=== PATIENT | male | born 1955 | race African-American/Black ===

== ENCOUNTER 2016-07-15 13:41 | Inpatient (IN) | payer OTHER ==
[~2016-07-15] VITALS: Ht 175.3 cm; Wt 85.7 kg
[2016-07-15] MEDS ORDERED: SPIR25TA PO (14:50)
[2016-07-15] MEDS ORDERED: OXGN (14:50)
[2016-07-15] MEDS ORDERED: METF-384 PO (14:50)
[2016-07-15] MEDS ORDERED: CARV6.252 PO (14:50)
[2016-07-15] MEDS ORDERED: FRS/40 PO (14:50)
[2016-07-15] MEDS ORDERED: GLIM2TAB2 PO (14:50)
[2016-07-15] MEDS ORDERED: LISI-729 PO (14:50)
[2016-07-15] MEDS ORDERED: ASPI81TA28 PO (14:50)
[2016-07-15] MEDS ORDERED: INSHRIE SC (14:50)
[2016-07-15] MEDS ORDERED: CGN1 PO (14:50)
[2016-07-15] MEDS ORDERED: POTA20TA16 PO (14:50)
[2016-07-15] MEDS ORDERED: ABL/5 PO (14:50)
--- NOTE | 2016-07-15 14:58 | DIAGNOSTIC IMAGING REPORT ---
CHEST ONE VIEW PORTABLE CLINICAL HISTORY: Chest Pain dyspnea COMPARISON STUDY: No previous studies for comparison. FINDINGS: Heart is enlarged. There is a left pleural effusion. There is atelectatic and/or effusion-type change right base. Pulmonary vasculature is prominent. IMPRESSION: Congestive heart failure and/or pulmonary edema. Bilateral pleural effusions. Electronically signed by: Ld Gramajo M.D. 07/15/2016 2:57 PM Dictated Date/Time: 07/15/2016 2:56 PM
--- NOTE | 2016-07-15 15:13 | EMERGENCY ROOM VISIT NOTE ---
History Report prepared by Iggy: Adam Freeman Under the Supervision of: Dr. Sourav Lind M.D. First contact with patient: 14:39 Chief Complaint: RESPIRATORY PROBLEMS Stated Complaint: REFUSING TREATMENT History of Present Illness The patient is a 61 year old male who presents to the Emergency Room with complaints of persistent shortness of breath for the past 2-3 days. Nursing notes indicate that the patient's oxygen saturation dropped to 88% on RA. He has also had a cough. The patient also notes leg swelling for which he takes Lasix. The patient denies any pain. The patient notes that he only urinated twice today. The patient has a history of CHF, which he currently denies. He also has a history of shingles. The patient came to the ED from [facility], where he was in the Mental Health Unit. Source of History: patient, nursing staff Onset: 2-3 days Position: other (respiratory) Quality: other (short of breath) Timing: other (persistent) Associated Symptoms: + cough, No chest pain Review of Systems See HPI for pertinent positives & negatives. A total of 10 systems reviewed and were otherwise negative. Past Medical & Surgical Medical Problems: (1) CHF (congestive heart failure) Family History Patient reports no known family medical history. Social History Smoking Status: Former Smoker Housing Status: other ([facility]) Occupation Status: other (incarcerated) Current/Historical Medications Scheduled Aripiprazole (Abilify), 5 MG PO DAILY Aspirin (Aspirin Ec), 81 MG PO DAILY Benztropine Mesylate (Cogentin), 0.5 MG PO HS Carvedilol (Coreg), 6.25 MG PO BID Furosemide (Lasix), 40 MG PO BID Glimepiride (Glimepiride), 2 MG PO DAILY Insulin Human Regular (Humulin R), 2-12 UNITS SC UD Lisinopril (Zestril), 25 MG PO DAILY Metformin Hcl (Glucophage), 1,000 MG PO BID Oxygen (Oxygen), 2 LITERS NA PRN Potassium Ext Rel (Klor-Con), 20 MEQ PO DAILY Spironolactone (Aldactone), 25 MG PO DAILY Allergies Coded Allergies: No Known Allergies (Unverified , 07/15/16) Physical Exam Vital Signs Date Time Temp Pulse Resp B/P Pulse Ox O2 Delivery O2 Flow Rate FiO2 07/15/16 18:30 36.6 88 16 140/90 90 Room Air 07/15/16 18:09 76 16 141/90 92 07/15/16 16:11 88 21 137/88 94 Room Air 07/15/16 16:00 91 Room Air 07/15/16 14:41 88 24 134/8 91 Room Air 07/15/16 14:13 88 Room Air 07/15/16 14:10 88 07/15/16 14:05 36.7 92 20 142/84 88 Room Air Physical Exam GENERAL: Patient is chronically unwell appearing and in no acute distress. HEENT: No acute trauma, normocephalic atraumatic, mucous membranes moist, no nasal congestion, no scleral icterus. NECK: No stridor, no adenopathy, no meningismus, trachea is midline. LUNGS: No dyspnea. Decreased breath sounds bilaterally with crackles at apex. HEART: Regular rate and rhythm. No murmurs, rubs, gallops appreciated. ABDOMEN: Soft, nontender, bowel sounds positive, no masses appreciated, no peritonitis. Pitting edema. BACK: No midline tenderness, no CVA tenderness. Pitting edema. Healing shingles along the right flank. EXTREMITIES: Normal motion all extremities, no cyanosis. Pitting edema of the bilateral lower legs. NEUROLOGIC: Alert and oriented, no acute motor or sensory deficits, no focal weakness, cranial nerves grossly intact. SKIN: No rash, no jaundice, no diaphoresis. Medical Decision & Procedures ER Provider Diagnostic Interpretation: X ray results are stated below per my interpretation and the radiologist's interpretation. CHEST ONE VIEW PORTABLE CLINICAL HISTORY: Chest Pain dyspnea COMPARISON STUDY: No previous studies for comparison. FINDINGS: Heart is enlarged. There is a left pleural effusion. There is atelectatic and/or effusion-type change right base. Pulmonary vasculature is prominent. IMPRESSION: Congestive heart failure and/or pulmonary edema. Bilateral pleural effusions. Electronically signed by: Ld Gramajo M.D. 07/15/2016 2:57 PM Dictated Date/Time: 07/15/2016 2:56 PM Laboratory Results 07/15/16 15:01 Red Blood Count 4.93, Mean Corpuscular Volume 83.6, Mean Corpuscular Hemoglobin 27.0, Mean Corpuscular Hemoglobin Concent 32.3, Mean Platelet Volume 9.6, Neutrophils (%) (Auto) 77.9, Lymphocytes (%) (Auto) 13.2, Monocytes (%) (Auto) 6.9, Eosinophils (%) (Auto) 1.5, Basophils (%) (Auto) 0.1, Neutrophils # (Auto) 6.05, Lymphocytes # (Auto) 1.03, Monocytes # (Auto) 0.54, Eosinophils # (Auto) 0.12, Basophils # (Auto) 0.01 07/15/16 15:01 Test 07/15/16 15:01 07/15/16 15:23 White Blood Count 7.78 K/uL (4.8-10.8) Red Blood Count 4.93 M/uL (4.7-6.1) Hemoglobin 13.3 g/dL (14.0-18.0) Hematocrit 41.2 % (42-52) Mean Corpuscular Volume 83.6 fL (80-100) Mean Corpuscular Hemoglobin 27.0 pg (25-34) Mean Corpuscular Hemoglobin Concent 32.3 g/dl (32-36) Platelet Count 265 K/uL (130-400) Mean Platelet Volume 9.6 fL (7.4-10.4) Neutrophils (%) (Auto) 77.9 % Lymphocytes (%) (Auto) 13.2 % Monocytes (%) (Auto) 6.9 % Eosinophils (%) (Auto) 1.5 % Basophils (%) (Auto) 0.1 % Neutrophils # (Auto) 6.05 K/uL (1.4-6.5) Lymphocytes # (Auto) 1.03 K/uL (1.2-3.4) Monocytes # (Auto) 0.54 K/uL (0.11-0.59) Eosinophils # (Auto) 0.12 K/uL (0-0.5) Basophils # (Auto) 0.01 K/uL (0-0.2) RDW Standard Deviation 62.0 fL (36.4-46.3) RDW Coefficient of Variation 20.4 % (11.5-14.5) Immature Granulocyte % (Auto) 0.4 % Immature Granulocyte # (Auto) 0.03 K/uL (0.00-0.02) Polychromasia 1+ Anisocytosis PRESENT Prothrombin Time 14.0 SECONDS (9.0-12.0) Prothromb Time International Ratio 1.3 (0.9-1.1) Activated Partial Thromboplast Time 28.3 SECONDS (21.0-31.0) Partial Thromboplastin Ratio 1.1 Anion Gap 7.0 mmol/L (3-11) Est Creatinine Clear Calc Drug Dose 103.5 ml/min Estimated GFR () 110.4 Estimated GFR (Non- 95.3 BUN/Creatinine Ratio 32.6 (10-20) Calcium Level 8.3 mg/dl (8.5-10.1) Total Bilirubin 0.8 mg/dl (0.2-1) Direct Bilirubin 0.5 mg/dl (0-0.2) Aspartate Amino Transf (AST/SGOT) 38 U/L (15-37) Alanine Aminotransferase (ALT/SGPT) 114 U/L (12-78) Alkaline Phosphatase 106 U/L (45-117) Total Creatine Kinase 71 U/L (39-308) Creatine Kinase MB 1.8 ng/ml (0.5-3.6) Creatine Kinase MB Ratio 2.5 (0-3.0) Troponin I 0.021 ng/ml (0-0.045) Pro-B-Type Natriuretic Peptide 6847 pg/ml (0-900) Total Protein 6.8 gm/dl (6.4-8.2) Albumin 2.6 gm/dl (3.4-5.0) Chemistry Specimen Hemolysis Arterial Blood pH 7.48 (7.35-7.45) Arterial Blood Partial Pressure CO2 35 mmHg (35-46) Arterial Blood Partial Pressure O2 55 mm/Hg (80-95) Arterial Blood HCO3 26 mmol/L (19-24) Arterial Blood Oxygen Saturation 87.4 % (90-95) Arterial Blood Base Excess 2.6 mEq/L (-9-1.8) Arterial Blood Gas Delivery ROOM AIR Taiwo Test POS (POS) Laboratory results as reviewed by me. Medications Administered Medications (Trade) Dose Ordered Sig/Piyush Route Start Time Stop Time Status Last Admin Dose Admin Furosemide (Lasix Inj) 40 mg NOW STAT IV 07/15/16 15:55 07/15/16 15:56 DC 07/15/16 16:10 40 MG ECG Indication: SOB/dyspnea Rate (beats per minute): 91 Rhythm: normal sinus Findings: no acute ischemic change, no ectopy, other (prolonged QTC 494, poor baseline) ED Course 1508: The patient was evaluated in room A5. A complete history and physical exam was performed. 1555: Lasix 40 mg IV. 151: Medicine paged. 1610: Spoke with Dr. Parker, [facility]. The patient will be evaluated. Medical Decision Differential: Infectious, Reactive Airway Disease, Pneumonia, Pneumothorax, COPD , CHF, ACS, Pulmonary Embolism, MSK, GI, Dissection, amongst other etiologies entertained. 61 yr old male arrives for acute worsening of shortness of breath, leg swelling and weakness. He is clearly fluid overloaded which is confirmed by CXR. BNP also elevated. He is hypoxic with walking and trending low just in bed. He also appears to have bilateral pleural effusions. No evidence of infection at this time though may need further work-up. He is stable and in no distress otherwise. IV lasix given here. Hospitalist down to evaluate and bring in. No evidence of ACS. Consults Time Called: 1514 Consulting Physician: Dr. Parker, [facility]. Returned Call: [phone]: Spoke with Dr. Parker, [facility]. The patient will be evaluated. Impression Primary Impression: Pulmonary edema Additional Impressions: Hypoxia Acute on chronic congestive heart failure Scribe Attestation The scribe's documentation has been prepared under my direction and personally reviewed by me in its entirety. I confirm that the note above accurately reflects all work, treatment, procedures, and medical decision making performed by me. Departure Information Dispostion Being Evaluated By Hospitalist Patient Instructions My [facility] Problem Qualifiers Primary Impression: Pulmonary edema Chronicity: acute Qualified Codes: J81.0 - Acute pulmonary edema Additional Impressions: Acute on chronic congestive heart failure Congestive heart failure type: unspecified congestive heart failure type Qualified Codes: I50.9 - Heart failure, unspecified
[2016-07-15 15:14] LABS: BASO % 0.1 %; BASO ABS # 0.01 K/uL (0-0.2); EOS % 1.5 %; HEMATOCRIT 41.2 % (42-52); IG% 0.4 %; LYMPH % 13.2 %; LYMPH ABS # 1.03 K/uL (1.2-3.4); MEAN CELL VOLUME 83.6 fL (80-100); MEAN CORPUSCULAR HGB CONC 32.3 g/dl (32-36); MEAN PLATELET VOLUME 9.6 fL (7.4-10.4); MONO % 6.9 %; NEUT % 77.9 %; PLATELET COUNT 265 K/uL (130-400); RED BLOOD COUNT 4.93 M/uL (4.7-6.1); WHITE BLOOD COUNT 7.78 K/uL (4.8-10.8)
[2016-07-15 15:34] LABS: ANISOCYTOSIS PRESENT; COMPLETE YES; POLYCHROMASIA 1+
[2016-07-15 15:40] LABS: ARTERIAL BLD GAS O2 SATURATION 87.4 % (90-95); ARTERIAL BLOOD GAS BASE EXCESS 2.6 mEq/L (-9-1.8); ARTERIAL BLOOD GAS HCO3 26 mmol/L (19-24); ARTERIAL BLOOD GAS PO2 55 mm/Hg (80-95); ARTERIAL BLOOD GAS pH 7.48 (7.35-7.45)
[2016-07-15 15:46] LABS: ALLEN TEST POS (POS); O2 ADMINISTRATION ROOM AIR
[2016-07-15 15:51] LABS: BUN/CREATININE RATIO 32.6 (10-20); CALCIUM 8.3 mg/dl (8.5-10.1); CKMB/CK RATIO 2.5 (0-3.0); CREATININE 0.81 mg/dl (0.60-1.40); POTASSIUM 4.3 mmol/L (3.5-5.1)
[2016-07-15] MEDS ORDERED: FUROSEMIDE 40 MG/4 ML VIAL IV STA (15:55)
[2016-07-15] MEDS ORDERED: OPTIRAY 320 IV PRN (16:30)
--- NOTE | 2016-07-15 17:04 | DIAGNOSTIC IMAGING REPORT ---
CT OF THE CHEST WITH IV CONTRAST CLINICAL HISTORY: Abnormal chest radiograph. COMPARISON STUDY: Chest radiograph July 15, 2016. TECHNIQUE: Following IV administration of 94 mL of Optiray-320, helical axial images of the chest were obtained. Images were viewed in the axial, sagittal and coronal planes. IV contrast was administered without complication. CT DOSE: 369.91 mGycm FINDINGS: This exam is compromised by respiratory motion. There is moderate cardiomegaly. Generalized anasarca is noted. There is no pericardial effusion. There are moderate bilateral pleural effusions. No pneumothorax is present. The central airways are patent. Lungs are suboptimally assessed due to respiratory motion. Mild groundglass opacities likely reflect pulmonary edema. There is bilateral fissural fluid. Bilateral lower lobe opacities likely reflect compressive atelectasis with lower lobe volume loss. No enlarged axillary, mediastinal or hilar lymph nodes are present. There is a healing fracture the left eighth rib. There is reflux of contrast into the IVC and hepatic veins. IMPRESSION: 1. Moderate bilateral pleural effusions with associated lower lobe airspace opacities and volume loss which favor compressive atelectasis. 2. Moderate cardiomegaly. 3. Mild groundglass opacities which favor pulmonary edema. 4. Generalized anasarca. 5. Study compromised by respiratory motion. Electronically signed by: Emiliano Clarke M.D. 07/15/2016 5:03 PM Dictated Date/Time: 07/15/2016 4:57 PM
[2016-07-15] MEDS ORDERED: ACETAMINOPHEN 325 MG TAB PO PRN (17:15)
[2016-07-15] MEDS ORDERED: ZOLPIDEM TARTRATE 5 MG TAB PO PRN (17:15)
[2016-07-15] MEDS ORDERED: NITROGLYCERIN 0.4 MG SL PER TAB CHARGE SL PRN (17:15)
[2016-07-15] MEDS ORDERED: DEXTROSE 50% 50 ML SYR IV PRN (17:30)
[2016-07-15] MEDS ORDERED: ONDANSETRON INJ 2 MG/ML 2 ML VIAL IV PRN (17:30)
[2016-07-15] MEDS ORDERED: GLUCOSE 40% GEL 15 GM TUBE PO PRN (17:30)
[2016-07-15] MEDS ORDERED: GLUCOSE 10 TABS/TUBE PO PRN (17:30)
[2016-07-15] MEDS ORDERED: GLUCAGON FOR INJ 1 MG VIAL SQ PRN (17:30)
[2016-07-15 17:31] LABS: INR 1.3 (0.9-1.1); PARTIAL THROMBOPLASTIN RATIO 1.1
[2016-07-15 18:30] VITALS: BP 140/90; PULSE 88; TEMP 36.6; O2SAT 90
[2016-07-15 19:16] VITALS: O2SAT 98; Ht 175.3 cm; Wt 85.7 kg
[2016-07-15 20:00] VITALS: O2SAT 98
[2016-07-15 20:30] VITALS: BP 142/84; PULSE 85; TEMP 37; O2SAT 94
[2016-07-15] MEDS: POTASSIUM CHLORIDE 20 MEQ TABCR PO SCH (20:39)
[2016-07-15] MEDS: FUROSEMIDE INJ 40 MG in SYRINGE 0 ML IV SCH (20:39)
[2016-07-15] MEDS: CARVEDILOL 6.25 MG TAB PO SCH (20:40)
[2016-07-15] MEDS: BENZTROPINE MESYLATE 1 MG TAB PO SCH (20:40)
[2016-07-15] MEDS: ENOXAPARIN 40 MG/0.4 ML SYR SC SCH (20:41)
[2016-07-15] MEDS: INSULIN ASPART 100 UNITS/ML 3 ML PEN SC SCH (20:44)
--- NOTE | 2016-07-15 22:03 | History and Physical ---
History & Physical Date & Time of Service: Jul 15, 2016 at 21:48 Chief Complaint: Acute On Chronic Congestive Heart Failure, Hypoxia Primary Care Physician: Rafita MUJICA History of Present Illness Source: patient The patient is a 61-year-old male resident of [facility] ,who presents to the emergency department with shortness of breath and leg swelling that initially began about 4 months ago, worsening over the past 2-3 days. He was found in the emergency department to have a pulse ox decreased to 88% on room air. He has been taking Lasix daily. The patient was in the mental health unit at [facility] for unknown treatment. Past Medical/Surgical History Medical Problems: (1) CHF (congestive heart failure) Status: Chronic Family History Patient reports no known family medical history. Social History Smoking Status: Former Smoker Smokeless Tobacco Use: No Alcohol Use: socially Drug Use: none Occupational Status: other (incarcerated) Multi-Drug Resistant Organisms History of MDRO: No Allergies Coded Allergies: No Known Allergies (Unverified , 07/15/16) Home Medications Scheduled Aripiprazole (Abilify), 5 MG PO DAILY Aspirin (Aspirin Ec), 81 MG PO DAILY Benztropine Mesylate (Cogentin), 0.5 MG PO HS Carvedilol (Coreg), 6.25 MG PO BID Furosemide (Lasix), 40 MG PO BID Glimepiride (Glimepiride), 2 MG PO DAILY Insulin Human Regular (Humulin R), 2-12 UNITS SC UD Lisinopril (Zestril), 25 MG PO DAILY Metformin Hcl (Glucophage), 1,000 MG PO BID Oxygen (Oxygen), 2 LITERS NA PRN Potassium Ext Rel (Klor-Con), 20 MEQ PO DAILY Spironolactone (Aldactone), 25 MG PO DAILY Review of Systems The patient denies vision change, hearing change, sore throat, fevers, chills, sweats, weight change, fatigue, nausea, vomiting, abdominal pain, pelvic pain, blood in urine or stool, dysuria, urinary frequency or urgency, lightheadedness , dizziness, headache, memory loss, rash, abnormal bruising or bleeding, imbalance, focal or generalized weakness, numbness or tingling in arms or legs, arthralgias or myalgias, back or neck pain, night sweats, or allergy symptoms. The review of systems is otherwise negative other than for that already noted above, and at least 10 systems have been reviewed. Physical Exam Vital Signs Date Time Temp Pulse Resp B/P Pulse Ox O2 Delivery O2 Flow Rate FiO2 07/15/16 19:16 98 Nasal Cannula 2.0 07/15/16 18:30 36.6 88 16 140/90 90 Room Air 07/15/16 18:09 76 16 141/90 92 07/15/16 16:11 88 21 137/88 94 Room Air 07/15/16 16:00 91 Room Air 07/15/16 14:41 88 24 134/8 91 Room Air 07/15/16 14:13 88 Room Air 07/15/16 14:10 88 07/15/16 14:05 36.7 92 20 142/84 88 Room Air The patient is awake, well-developed and adequately nourished, alert and oriented 3, makes some comments that are unintelligible, lying in bed and in no acute distress. HEENT--PERRL, EOMI, mucous membranes and oropharynx. Neck--supple, no JVD or bruits, thyroid normal, trachea midline, no adenopathy. Heart--normal S1 and S2, no extra beats, no murmurs, rubs or gallops. Lungs--decreased breath sounds throughout, and dull at the bases retirement up bilaterally, no respiratory distress, no accessory muscle use. Abdomen--normal bowel sounds and soft, nontender and nondistended, no hernias or masses, no organomegaly. Extremities--no cyanosis, clubbing. There is bilaterally 2+ pitting Edema. There are good distal pulses b/l. Dermatologic--normal skin turgor, normal color, warm and dry, no abnormal lymph nodes, no rash. Neurologic--cranial nerves II through XII grossly intact, motor and sensory examination normal. Rheumatologic--normal range of motion, nontender, muscles and joints. Psychiatric--suspect he is schizophrenic. Diagnostics Laboratory Results Results Past 24 Hours Test 07/15/16 15:01 07/15/16 15:23 07/15/16 20:43 Range/Units White Blood Count 7.78 4.8-10.8 K/uL Red Blood Count 4.93 4.7-6.1 M/uL Hemoglobin 13.3 14.0-18.0 g/dL Hematocrit 41.2 42-52 % Mean Corpuscular Volume 83.6 80-100 fL Mean Corpuscular Hemoglobin 27.0 25-34 pg Mean Corpuscular Hemoglobin Concent 32.3 32-36 g/dl Platelet Count 265 130-400 K/uL Mean Platelet Volume 9.6 7.4-10.4 fL Neutrophils (%) (Auto) 77.9 % Lymphocytes (%) (Auto) 13.2 % Monocytes (%) (Auto) 6.9 % Eosinophils (%) (Auto) 1.5 % Basophils (%) (Auto) 0.1 % Neutrophils # (Auto) 6.05 1.4-6.5 K/uL Lymphocytes # (Auto) 1.03 1.2-3.4 K/uL Monocytes # (Auto) 0.54 0.11-0.59 K/uL Eosinophils # (Auto) 0.12 0-0.5 K/uL Basophils # (Auto) 0.01 0-0.2 K/uL RDW Standard Deviation 62.0 36.4-46.3 fL RDW Coefficient of Variation 20.4 11.5-14.5 % Immature Granulocyte % (Auto) 0.4 % Immature Granulocyte # (Auto) 0.03 0.00-0.02 K/uL Polychromasia 1+ Anisocytosis PRESENT Prothrombin Time 14.0 9.0-12.0 SECONDS Prothromb Time International Ratio 1.3 0.9-1.1 Activated Partial Thromboplast Time 28.3 21.0-31.0 SECONDS Partial Thromboplastin Ratio 1.1 Sodium Level 137 136-145 mmol/L Potassium Level 4.3 3.5-5.1 mmol/L Chloride Level 101 98-107 mmol/L Carbon Dioxide Level 29 21-32 mmol/L Anion Gap 7.0 3-11 mmol/L Blood Urea Nitrogen 26 7-18 mg/dl Creatinine 0.81 0.60-1.40 mg/dl Est Creatinine Clear Calc Drug Dose 103.5 ml/min Estimated GFR () 110.4 Estimated GFR (Non- 95.3 BUN/Creatinine Ratio 32.6 10-20 Random Glucose 92 70-99 mg/dl Calcium Level 8.3 8.5-10.1 mg/dl Total Bilirubin 0.8 0.2-1 mg/dl Direct Bilirubin 0.5 0-0.2 mg/dl Aspartate Amino Transf (AST/SGOT) 38 15-37 U/L Alanine Aminotransferase (ALT/SGPT) 114 12-78 U/L Alkaline Phosphatase 106 45-117 U/L Total Creatine Kinase 71 39-308 U/L Creatine Kinase MB 1.8 0.5-3.6 ng/ml Creatine Kinase MB Ratio 2.5 0-3.0 Troponin I 0.021 0-0.045 ng/ml Pro-B-Type Natriuretic Peptide 6847 0-900 pg/ml Total Protein 6.8 6.4-8.2 gm/dl Albumin 2.6 3.4-5.0 gm/dl Chemistry Specimen Hemolysis Arterial Blood pH 7.48 7.35-7.45 Arterial Blood Partial Pressure CO2 35 35-46 mmHg Arterial Blood Partial Pressure O2 55 80-95 mm/Hg Arterial Blood HCO3 26 19-24 mmol/L Arterial Blood Oxygen Saturation 87.4 90-95 % Arterial Blood Base Excess 2.6 -9-1.8 mEq/L Arterial Blood Gas Delivery ROOM AIR Taiwo Test POS POS Bedside Glucose 111 70-99 mg/dl Diagnostic Radiology Patient Name: DORY EDWARDS [id number] Unit Number: [id number] Dictated: 07/15/[id number] Transcribed: 07/15/16 1456 MS Printed Date/Time: [~ rep prt dt]/[~ rep prt tm] [~ rep ct labl] - [~ rep ct ivnm] [facility] [place] [address] Dictated: 07/15/[id number] Transcribed: 07/15/16 1456 MS Printed Date/Time: [~ rep prt dt]/[~ rep prt tm] [~ rep ct labl] - [~ rep ct ivnm] DIAGNOSTIC IMAGING [~ rep ct add3]] CHEST ONE VIEW PORTABLE CLINICAL HISTORY: Chest Pain dyspnea COMPARISON STUDY: No previous studies for comparison. FINDINGS: Heart is enlarged. There is a left pleural effusion. There is atelectatic and/or effusion-type change right base. Pulmonary vasculature is prominent. IMPRESSION: Congestive heart failure and/or pulmonary edema. Bilateral pleural effusions. Electronically signed by: Ld Gramajo M.D. 07/15/2016 2:57 PM Dictated Date/Time: 07/15/2016 2:56 PM The status of this report is Signed. Draft = Not yet reviewed or approved by Radiologist. Signed = Reviewed and approved by Radiologist. <AttendingPhy></AttendingPhy> <FamilyPhy>Rafita MUJICA</FamilyPhy> <PrimaryPhy> Rafita MUJICA</PrimaryPhy> <UnitNumber>[id number]</UnitNumber> <VisitNumber> [id number]</VisitNumber> <PatientName>DORY EDWARDS [id number]</PatientName> < DateOfBirth>1955</DateOfBirth> <Location>C.GISSEL</Location> <ServiceDate></ServiceDate> <MNE>ESINDI</MNE> <OrderingPhy>Sourav Lind M.D.</ OrderingPhy> <OrderingPhyMNE>f rep ord dr santos</OrderingPhyMNE> <DictatingPhyMNE> f rep dict dr santos</DictatingPhyMNE> <CCListMNE>f rep ct mne</CCListMNE> < AdmittingPhyMNE>f pt admit dr santos</AdmittingPhyMNE> <AttendingPhyMNE>f pt attend dr santos</AttendingPhyMNE> <ConsultingPhyMNE>f pt consult dr santos</ConsultingPhyMNE> <FamilyPhyMNE>f pt fam dr santos</FamilyPhyMNE> <OtherPhyMNE>f pt other dr santos</OtherPhyMNE> < PrimaryPhyMNE>f pt prim care dr santos</PrimaryPhyMNE> <ReferringPhyMNE>f pt referring dr santos</ReferringPhyMNE> Patient Name: DORY EDWARDS [id number] Unit Number: [id number] Dictated: 07/15/[id number] Transcribed: 07/15/161656 JIMMY Printed Date/Time: [~ rep prt dt]/[~ rep prt tm] [~ rep ct labl] - [~ rep ct ivnm] [facility] [place] [place] [address] Dictated: 07/15/[id number] Transcribed: 07/15/161656 JA Printed Date/Time: [~ rep prt dt]/[~ rep prt tm] [~ rep ct labl] - [~ rep ct ivnm] CT OF THE CHEST WITH IV CONTRAST CLINICAL HISTORY: Abnormal chest radiograph. COMPARISON STUDY: Chest radiograph July 15, 2016. TECHNIQUE: Following IV administration of 94 mL of Optiray-320, helical axial images of the chest were obtained. Images were viewed in the axial, sagittal and coronal planes. IV contrast was administered without complication. CT DOSE: 369.91 mGycm FINDINGS: This exam is compromised by respiratory motion. There is moderate cardiomegaly. Generalized anasarca is noted. There is no pericardial effusion. There are moderate bilateral pleural effusions. No pneumothorax is present. The central airways are patent. Lungs are suboptimally assessed due to respiratory motion. Mild groundglass opacities likely reflect pulmonary edema. There is bilateral fissural fluid. Bilateral lower lobe opacities likely reflect compressive atelectasis with lower lobe volume loss. No enlarged axillary, mediastinal or hilar lymph nodes are present. There is a healing fracture the left eighth rib. There is reflux of contrast into the IVC and hepatic veins. IMPRESSION: 1. Moderate bilateral pleural effusions with associated lower lobe airspace opacities and volume loss which favor compressive atelectasis. 2. Moderate cardiomegaly. 3. Mild groundglass opacities which favor pulmonary edema. 4. Generalized anasarca. 5. Study compromised by respiratory motion. Electronically signed by: Emiliano Clarke M.D. 07/15/2016 5:03 PM Dictated Date/Time: 07/15/2016 4:57 PM The status of this report is Signed. Draft = Not yet reviewed or approved by Radiologist. Signed = Reviewed and approved by Radiologist. <AttendingPhy></AttendingPhy> <FamilyPhy>Rafita MUJICA</FamilyPhy> <PrimaryPhy> Rafita MUJICA</PrimaryPhy> <UnitNumber>[id number]</UnitNumber> <VisitNumber> [id number]</VisitNumber> <PatientName>DORY EDWARDS [id number]</PatientName> < DateOfBirth>1955</DateOfBirth> <Location>C.GISSEL</Location> <ServiceDate></ServiceDate> <MNE>ESINDI</MNE> <OrderingPhy>Abdelrahman Parker M.D.</ OrderingPhy> <OrderingPhyMNE>f rep ord dr santos</OrderingPhyMNE> <DictatingPhyMNE> f rep dict dr santos</DictatingPhyMNE> <CCListMNE>f rep ct juan pabloe</CCListMNE> < AdmittingPhyMNE>f pt admit dr santos</AdmittingPhyMNE> <AttendingPhyMNE>f pt attend dr santos</AttendingPhyMNE> <ConsultingPhyMNE>f pt consult dr sanots</ConsultingPhyMNE> <FamilyPhyMNE>f pt fam dr santos</FamilyPhyMNE> <OtherPhyMNE>f pt other dr santos</OtherPhyMNE> < PrimaryPhyMNE>f pt prim care dr santos</PrimaryPhyMNE> <ReferringPhyMNE>f pt referring dr santos</ReferringPhyMNE> EKG EKG shows normal sinus rhythm at 91 bpm, an old inferior wall RI, no acute ST-T changes Impression Assessment and Plan Acute on chronic CHF with unknown ejection fraction, which by history developed 4 months ago, and worsening over the past several days--he'll be admitted to the telemetry unit, for serial cardiac enzymes, cardiac rhythm monitoring and a 2-D echocardiogram with Dopplers. We'll place him on Lasix 40 mg IV twice a day with first dose tonight, and follow clinical examination and serial laboratories. We'll continue aspirin 81 mg by mouth daily, carvedilol 6.25 mg by mouth twice a day, lisinopril 25 mg by mouth daily, potassium extended release 20 mEq daily will be increased to 3 times a day, and increase spironolactone from 25-50 mg by mouth daily. Diabetes mellitus--hold metformin 1000 mg by mouth twice a day and regular insulin and glimepiride 2 mg by mouth daily. We'll place patient on Accu-Cheks before meals and at bedtime with NovoLog coverage. We'll restart glimeperide if sugars become elevated. Psychiatry--continue Abilify 5 mg by mouth daily and benztropine 0.5 mg by mouth at bedtime. Abnormal liver enzymes--may be secondary to hepatic congestion, however, will order viral panel, and a CT of the abdomen and pelvis for further assessment. 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 Y/N: Yes Risk Level: Moderate Given or contraindicated: SCD's
[2016-07-15 23:00] VITALS: BP 130/85; PULSE 81; TEMP 36.4; O2SAT 99
[2016-07-15 23:59] VITALS: O2SAT 98
[2016-07-16 04:00] VITALS: BP 116/77; PULSE 77; TEMP 36.7; O2SAT 98
[2016-07-16 05:53] LABS: BASO % 0.2 %; BASO ABS # 0.01 K/uL (0-0.2); EOS % 1.3 %; HEMATOCRIT 39.3 % (42-52); IG% 0.2 %; LYMPH % 14.8 %; LYMPH ABS # 0.89 K/uL (1.2-3.4); MEAN CELL VOLUME 83.8 fL (80-100); MEAN CORPUSCULAR HEMOGLOBIN 26.9 pg (25-34); MEAN CORPUSCULAR HGB CONC 32.1 g/dl (32-36); MEAN PLATELET VOLUME 9.1 fL (7.4-10.4); MONO % 6.1 %; NEUT % 77.4 %; PLATELET COUNT 233 K/uL (130-400); RED BLOOD COUNT 4.69 M/uL (4.7-6.1); WHITE BLOOD COUNT 6.03 K/uL (4.8-10.8)
[2016-07-16 06:02] LABS: INR 1.3 (0.9-1.1); PARTIAL THROMBOPLASTIN RATIO 1.2
[2016-07-16 06:28] LABS: BUN/CREATININE RATIO 30.6 (10-20); CALCIUM 8.2 mg/dl (8.5-10.1); CREATININE 0.8 mg/dl (0.60-1.40); MAGNESIUM 2.2 mg/dl (1.8-2.4); POTASSIUM 4.4 mmol/L (3.5-5.1)
[2016-07-16 06:59] LABS: COMPLETE YES
[2016-07-16 07:02] LABS: ANISOCYTOSIS PRESENT
[2016-07-16] MEDS: INSULIN ASPART 100 UNITS/ML 3 ML PEN SC SCH ×4 (07:26→20:52)
[2016-07-16] MEDS: POTASSIUM CHLORIDE 20 MEQ TABCR PO SCH ×3 (07:47→20:48)
[2016-07-16] MEDS: ASPIRIN 81 MG ECTAB PO SCH (07:48)
[2016-07-16] MEDS: FUROSEMIDE INJ 40 MG in SYRINGE 0 ML IV SCH ×2 (07:48→17:01)
[2016-07-16] MEDS: CARVEDILOL 6.25 MG TAB PO SCH ×2 (07:48→20:49)
[2016-07-16] MEDS: SPIRONOLACTONE 25 MG TAB PO SCH (07:48)
[2016-07-16] MEDS: ARIPIprazole TAB 5 MG TAB PO SCH ×2 (07:48→07:53)
[2016-07-16 08:00] VITALS: BP 144/87; PULSE 81; TEMP 36.9; O2SAT 94
[2016-07-16 11:29] VITALS: BP 144/87; PULSE 81; TEMP 36.9; O2SAT 94
--- NOTE | 2016-07-16 13:41 | ECHOCARDIOGRAM REPORT ---
*NOTICE TO RECEIVING [employer] This information is strictly Confidential and protected under [place] law. [place] law prohibits you from making any further disclosure of this information unless further disclosure is expressly permitted by the written consent of the person to whom it pertains or is authorized by law. A general authorization for the release of medical or other information is not sufficient for this purpose. Hospital accepts no responsibility if the information is made available to any other person, INCLUDING THE PATIENT. Interpretation Summary * Name: DORY EDWARDS [id number] Study Date: 07/16/2016 10:57 AM BP: 144/87 mmHg * [facility] HR: 81 * : 1955 (M/d/yyyy) Gender: Male Height: 69 in * Age: 61 yrs Ethnicity: AA Weight: 184 lb * Ordering Physician: Nicole Bray * Referring Physician: Rafita MUJICA * Performed By: Maite Grubbs RDCS * * Reason For Study: CHF * BSA: 2.0 m2 * -- Conclusions -- * Left ventricular systolic function is severely reduced. * There are regional wall motion abnormalities as specified. * The right ventricle is mildly dilated. * The right ventricular systolic function is moderate to severely reduced. * There is mild mitral regurgitation. * Right ventricular systolic pressure is normal. Procedure Details * A complete two-dimensional transthoracic echocardiogram was performed (2D, M-mode, Doppler and color flow Doppler). Left Ventricle * The left ventricle is normal in size. * There is normal left ventricular wall thickness. * Ejection Fraction = 15-20%. * Left ventricular systolic function is severely reduced. * Inferior wall is akinetic. The anterior apex is akinetic. The basal ahterior wall and lateral lugo are severely hypokinetic but move the best. The septum is akinetic * There are regional wall motion abnormalities as specified. Right Ventricle * The right ventricle is mildly dilated. * The right ventricular systolic function is moderate to severely reduced. Atria * The left atrial size is normal. * Right atrial size is normal. Mitral Valve * The mitral valve anatomy is normal. * There is mild mitral regurgitation. Tricuspid Valve * The tricuspid valve is not well visualized, but is grossly normal. * There is trace tricuspid regurgitation. * Right ventricular systolic pressure is normal. Aortic Valve * The aortic valve is normal in structure and function. * No hemodynamically significant valvular aortic stenosis. * There is no significant aortic regurgitation. Pericardium/Pleural * There is no pericardial effusion. Left Ventricular Diastolic Function * indeterminate MMode 2D Measurements and Calculations IVSd 0.86 cm LVIDd 5.5 cm LVIDs 4.9 cm LVPWd 1.0 cm IVS/LVPW 0.85 FS 11.4 % EDV(Teich) 146.5 ml ESV(Teich) 110.8 ml EF(Teich) 24.4 % EDV(cubed) 165.1 ml ESV(cubed) 114.9 ml EF(cubed) 30.4 % LV mass(C)d 195.2 grams LV mass(C)dI 97.9 grams/m\S\2 SV(Teich) 35.7 ml SI(Teich) 17.9 ml/m\S\2 SV(cubed) 50.1 ml SI(cubed) 25.1 ml/m\S\2 LA dimension 3.4 cm LVAd ap4 34.0 cm\S\2 LVLd ap4 8.8 cm EDV(MOD-sp4) 109.9 ml EDV(sp4-el) 112.0 ml LVAs ap4 28.9 cm\S\2 LVLs ap4 8.0 cm ESV(MOD-sp4) 88.1 ml ESV(sp4-el) 88.6 ml EF(MOD-sp4) 19.8 % EF(sp4-el) 20.9 % LVAd ap2 38.2 cm\S\2 LVLd ap2 8.8 cm EDV(MOD-sp2) 138.4 ml EDV(sp2-el) 140.7 ml LVAs ap2 32.5 cm\S\2 LVLs ap2 8.2 cm ESV(MOD-sp2) 112.5 ml ESV(sp2-el) 110.2 ml EF(MOD-sp2) 18.7 % EF(sp2-el) 21.7 % LVLd %diff 0.19 % EDV(MOD-bp) 124.3 ml LVLs %diff 2.2 % ESV(MOD-bp) 100.2 ml EF(MOD-bp) 19.4 % SV(MOD-sp4) 21.8 ml SI(MOD-sp4) 10.9 ml/m\S\2 SV(MOD-sp2) 25.9 ml SI(MOD-sp2) 13.0 ml/m\S\2 SV(MOD-bp) 24.2 ml SI(MOD-bp) 12.1 ml/m\S\2 SV(sp4-el) 23.4 ml SI(sp4-el) 11.8 ml/m\S\2 SV(sp2-el) 30.5 ml SI(sp2-el) 15.3 ml/m\S\2 Doppler Measurements and Calculations MV E max riddhi 88.5 cm/sec MV A max riddhi 46.3 cm/sec MV E/A 1.9 MV dec time 0.15 sec Ao V2 max 64.6 cm/sec Ao max PG 1.7 mmHg Ao max PG (full) 0.11 mmHg LV V1 max PG 1.6 mmHg LV V1 max 62.4 cm/sec MR max riddhi 245.0 cm/sec MR max PG 24.0 mmHg MR mean riddhi 191.5 cm/sec MR mean PG 16.4 mmHg MR VTI 92.4 cm PA V2 max 58.6 cm/sec PA max PG 1.4 mmHg PA acc slope 241.9 cm/sec\S\2 PA acc time 0.11 sec PI max riddhi 203.3 cm/sec PI max PG 16.5 mmHg PI dec slope 81.5 cm/sec\S\2 PI P1/2t 730.9 msec TR max riddhi 200.7 cm/sec PA pr(Accel) 29.9 mmHg
[2016-07-16 15:17] VITALS: BP 139/85; PULSE 83; TEMP 36.3; O2SAT 96
--- NOTE | 2016-07-16 17:40 | CARDIOLOGY CONSULTATION ---
DATE OF CONSULTATION: 07/16/[address] Parker. CHIEF COMPLAINT: Dyspnea. HISTORY OF PRESENT ILLNESS: Mr. Cristian Johnson is a 61-year-old gentleman with a prior history of congestive heart failure who is currently incarcerated at the [facility]. The patient was noted to have increasing edema and shortness of breath over the past several days, was also noted to have hypoxia at the facility. As such, he was transferred to [facility] for an additional evaluation. The patient himself is a fairly unreliable historian who is not able to provide any significant history. He states that he has been incarcerated for many years and has never seen a dental office assistant. He states that recently he did notice some edema in his lower extremities and also some increasing abdominal girth. He is well aware of dyspnea and has difficulty lying flat. He did describe orthopnea recently and significant dyspnea even with minimal activity such as standing or going to the bathroom. PAST MEDICAL HISTORY: 1. Significant for congestive heart failure. The patient was admitted to [facility] in April 2016. At that time he was noted to have severely reduced left ventricular systolic function and underwent medical therapy for decompensated congestive heart failure. The patient was placed on medical regimen and sent back to his unit. 2. Schizophrenia. 5. Diabetes mellitus. 6. Amnesia. 7. Hypertension. 8. Hyperlipidemia. 9. Hepatitis C positive. PAST SURGICAL HISTORY: No known surgery. OUTPATIENT MEDICATIONS: The patient's prescribed medications include aripiprazole, aspirin, Cogentin, carvedilol, furosemide, glimepiride, insulin, lisinopril, metformin, potassium supplementation and spironolactone. ALLERGIES: No known medical allergies. FAMILY HISTORY: No known family history of premature coronary disease or congestive heart failure. SOCIAL HISTORY: The patient currently incarcerated. 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 He does use tobacco by history, not currently smoking, not currently using alcohol. He states that in the past he did use illicit drugs such as methamphetamine, but this was quite remote. REVIEW OF SYSTEMS: A 10-system review of systems was performed. The pertinent positives noted in the history of present illness, many of his symptoms appear to be unreliable. PHYSICAL EXAMINATION: GENERAL: The patient does not appear in acute distress. He is a pleasant individual who is alert and appeared oriented; however, his perception of the situation was questionable. He answered questions in inappropriate fashion at times, his thinking appeared to be impaired. VITAL SIGNS: Included blood pressure 139/85, pulse is 83, oxygen saturation was 96%. Sclerae are anicteric. HEENT: Pupils equal, reactive to light and accommodation. Extraocular movements were intact. Palpation of submandibular region no evidence of lymphadenopathy. The carotids are palpable bilaterally. I do not appreciate bruits on auscultation. He did have an element of jugular venous distention approximately 3 cm above the sternal notch and thyroid was not enlarged. LUNGS: Auscultation of both lung painting revealed them to be clear with only occasional crackles at the bases bilaterally. Good air movement without use of accessory muscles of respiration. HEART: Revealed him to be in a regular rhythm without murmur. S1, S2 appeared normal. PMI was not markedly displaced. ABDOMEN: Somewhat protuberant, but soft and nontender. EXTREMITIES: Radial pulses are equal bilaterally. There was no evidence of cyanosis or clubbing. Evaluation of the lower extremities reveal 1+ pitting edema. He did have a rash in the right subpectoral region LABORATORY STUDIES: Obtained at [facility] include white cell count of 6.03, hemoglobin of 12.6, platelet count of 233. Chemistry profile revealed sodium 139, potassium of 4.4, BUN was 24, creatinine was 0.8, N-terminal proBNP was 6847. Albumin was low at 2.7. Troponin was normal. Echocardiogram was obtained today which revealed severely reduced left ventricular systolic function, estimated ejection fraction of approximately 20%. There was mild mitral regurgitation. A 12-lead EKG was also obtained at the time of admission. This revealed the patient to be in a normal sinus rhythm with left atrial abnormality and borderline first-degree AV block. There was poor R-wave progression of precordial leads and he did have T-wave abnormalities in the lateral precordial leads concerning for ischemic changes. ASSESSMENT AND PLAN: 1. Acute decompensated left ventricular systolic failure. Review of the patient's records suggest that he often times refuses his medications and has been noncompliant with medical therapy primarily due to his mental health illness. This undoubtedly contributes to his decompensation. The patient did undergo a significant diuresis yesterday with some improvement in edema and symptoms. The etiology of his left ventricular dysfunction is not known, this very well could be ischemic in nature, although he does not describe overt angina or chest pain type symptoms. The overall picture appears to be more consistent with a nonischemic etiology. This is based solely on the appearance on his echocardiogram. Whether he would be a good candidate for coronary angiography or intervention is unclear given his known history of noncompliance. He was advised to undergo cardiac catheterization at [facility], but refused at that time. His outpatient medical regimen is good if he were to take it. He has been prescribed LILLY inhibitor, beta-bernice and aldosterone antagonist as well as a daily diuretic, would seem reasonable to continue him on this medical regimen with more aggressive diuresis currently due to his acute exacerbation. I think until he is more euvolemic, we can defer any additional evaluation for the etiology of his heart failure. We will discuss with him the options; however, my enthusiasm for aggressive intervention is limited by his mental health issues and history of noncompliance. RECOMMENDATIONS: 1. Continue prescribed outpatient medical regimen. 2. Agree with continued aggressive diuresis, currently b.i.d. dosing of intravenous Lasix, monitoring electrolytes and renal function closely. 3. Will continue to follow during this hospitalization and discuss additional options for evaluation with the patient as his condition improves.
--- NOTE | 2016-07-16 20:05 | Hospitalist Progress Note ---
Hospitalist Progress Note Date of Service Jul 16, 2016. Subjective Pt evaluation today including: conversation w/ patient, physical exam, chart review, lab review, review of studies (reviewed all intermediate records), conversation w/ tax credit leasing consultant (Cardiol[employer]oy), review of inpatient medication list Pt feeling better, not SOB, diuresed and wants a second breakfast Constitutional: No fever Respiratory: No cough, No shortness of breath Cardiovascular: No chest pain Abdomen: No nausea, No pain All Other Systems: Reviewed and Negative Objective Vital Signs Date Time Temp Pulse Resp B/P Pulse Ox O2 Delivery O2 Flow Rate FiO2 07/16/16 16:00 Room Air 07/16/16 15:17 36.3 83 20 139/85 96 Room Air 07/16/16 12:00 Room Air 07/16/16 11:29 36.9 81 16 94 07/16/16 08:00 Room Air 07/16/16 08:00 36.9 81 16 144/87 94 Room Air 07/16/16 04:00 98 Nasal Cannula 2.0 07/16/16 04:00 36.7 77 18 116/77 98 Nasal Cannula 2.0 07/15/16 23:59 98 Nasal Cannula 2.0 07/15/16 23:00 36.4 81 14 130/85 99 Nasal Cannula 2.0 07/15/16 20:30 37.0 85 18 142/84 94 Room Air 07/15/16 20:00 98 Physical Exam General Appearance: WD/WN, no apparent distress Eyes: normal inspection, EOMI (with mild exophthalmos), sclerae normal ENT: hearing grossly normal Neck: trachea midline Respiratory/Chest: no respiratory distress, no accessory muscle use, + crackles (at bases) Cardiovascular: regular rate, rhythm, no murmur, + pertinent finding (1+ pitting edema legs bilat) Abdomen: normal bowel sounds, non tender, soft Extremities: no calf tenderness Neurologic/Psychiatric: alert, + pertinent finding (loud, demanding second breskfast) Skin: normal color, + rash (shingles rash right hemithorax) Laboratory Results Last 24 Hours Test 07/15/16 20:43 07/16/16 05:18 07/16/16 16:30 Bedside Glucose 111 mg/dl 242 mg/dl White Blood Count 6.03 K/uL Red Blood Count 4.69 M/uL Hemoglobin 12.6 g/dL Hematocrit 39.3 % Mean Corpuscular Volume 83.8 fL Mean Corpuscular Hemoglobin 26.9 pg Mean Corpuscular Hemoglobin Concent 32.1 g/dl Platelet Count 233 K/uL Mean Platelet Volume 9.1 fL Neutrophils (%) (Auto) 77.4 % Lymphocytes (%) (Auto) 14.8 % Monocytes (%) (Auto) 6.1 % Eosinophils (%) (Auto) 1.3 % Basophils (%) (Auto) 0.2 % Neutrophils # (Auto) 4.67 K/uL Lymphocytes # (Auto) 0.89 K/uL Monocytes # (Auto) 0.37 K/uL Eosinophils # (Auto) 0.08 K/uL Basophils # (Auto) 0.01 K/uL RDW Standard Deviation 61.5 fL RDW Coefficient of Variation 20.3 % Immature Granulocyte % (Auto) 0.2 % Immature Granulocyte # (Auto) 0.01 K/uL Red Blood Cell Morphology Anisocytosis PRESENT Prothrombin Time 14.0 SECONDS Prothromb Time International Ratio 1.3 Activated Partial Thromboplast Time 30.6 SECONDS Partial Thromboplastin Ratio 1.2 Sodium Level 139 mmol/L Potassium Level 4.4 mmol/L Chloride Level 101 mmol/L Carbon Dioxide Level 32 mmol/L Anion Gap 6.0 mmol/L Blood Urea Nitrogen 24 mg/dl Creatinine 0.80 mg/dl Est Creatinine Clear Calc Drug Dose 95.8 ml/min Estimated GFR () 111.0 Estimated GFR (Non- 95.7 BUN/Creatinine Ratio 30.6 Random Glucose 68 mg/dl Calcium Level 8.2 mg/dl Magnesium Level 2.2 mg/dl Total Bilirubin 0.8 mg/dl Direct Bilirubin 0.5 mg/dl Aspartate Amino Transf (AST/SGOT) 28 U/L Alanine Aminotransferase (ALT/SGPT) 91 U/L Alkaline Phosphatase 94 U/L Total Protein 6.3 gm/dl Albumin 2.7 gm/dl Assessment and Plan The patient is a 61-year-old male resident of [facility] ,who presents to the emergency department with shortness of breath and leg swelling that initially began about 4 months ago, worsening over the past 2-3 days. He apparently had another recent hospitalization for CHF and is traditionally noncompliant with taking all of the prescribed meds. Notes from intermediate records state he has to be bribed with snacks and things to get him to take his meds. He was found in the emergency department to have a pulse ox decreased to 88% on room air. The patient was in the mental health unit at [facility] and has known severe mental health issues. Acute on chronic systolic CHF, Acute hypoxemic respiratory failure -severe but improved today. CT Chest showed 1. Moderate bilateral pleural effusions with associated lower lobe airspace opacities and volume loss which favor compressive atelectasis.2. Moderate cardiomegaly.3. Mild groundglass opacities which favor pulmonary edema.4. Generalized anasarca. ECHO: *Left ventricular systolic function is severely reduced, EF 15-20% * There are regional wall motion abnormalities as specified. * The right ventricle is mildly dilated. * The right ventricular systolic function is moderate to severely reduced. * There is mild mitral regurgitation. * Right ventricular systolic pressure is normal. No events on telemetry unit--> tx to medical. He has diuresed nicely with IV lasix and is no longer hypoxemic, is feeling much better, troponin negative -continue Lasix 40 mg IV twice a day -continue aspirin 81 mg by mouth daily, carvedilol 6.25 mg by mouth twice a day , lisinopril but lower to 10mg daily (given increase in spironolactone), potassium extended release 20 mEq daily will be increased to 3 times a day, and increase spironolactone from 25-50 mg by mouth daily. -compliance will be an issue -Cardiology input appreciated-case d/w Dr. Hernandez Diabetes mellitus--hold metformin 1000 mg by mouth twice a day and regular insulin and glimepiride 2 mg by mouth daily. We'll place patient on Accu-Cheks before meals and at bedtime with NovoLog coverage. We'll restart glimepiride if sugars become elevated. Psychiatry--continue Abilify 5 mg by mouth daily and benztropine 0.5 mg by mouth at bedtime. Abnormal liver enzymes--may be secondary to hepatic congestion but also has h/o HCV as per intermediate records-improved today. Shingles-for 4 months, improving -no treatment indicated Proph-Lovenox -Dispo-to intermediate in 1-2 days
[2016-07-16] MEDS: ENOXAPARIN 40 MG/0.4 ML SYR SC SCH (20:47)
[2016-07-16] MEDS: BENZTROPINE MESYLATE 1 MG TAB PO SCH (20:48)
[2016-07-16 22:37] VITALS: BP 112/72; PULSE 84; TEMP 36.6; O2SAT 93
[2016-07-17 06:00] LABS: BASO % 0.2 %; BASO ABS # 0.01 K/uL (0-0.2); COMPLETE YES; EOS % 0.9 %; HEMATOCRIT 39.8 % (42-52); IG% 0.3 %; LYMPH % 14.5 %; LYMPH ABS # 0.94 K/uL (1.2-3.4); MEAN CELL VOLUME 82.6 fL (80-100); MEAN CORPUSCULAR HEMOGLOBIN 26.6 pg (25-34); MEAN CORPUSCULAR HGB CONC 32.2 g/dl (32-36); MEAN PLATELET VOLUME 9.7 fL (7.4-10.4); MONO % 7.1 %; PLATELET COUNT 251 K/uL (130-400); RED BLOOD COUNT 4.82 M/uL (4.7-6.1); WHITE BLOOD COUNT 6.47 K/uL (4.8-10.8)
[2016-07-17 06:35] LABS: BUN/CREATININE RATIO 31.4 (10-20); CALCIUM 8.1 mg/dl (8.5-10.1); CREATININE 0.78 mg/dl (0.60-1.40); MAGNESIUM 2.2 mg/dl (1.8-2.4); POTASSIUM 4.3 mmol/L (3.5-5.1)
[2016-07-17 08:09] VITALS: BP 100/67; PULSE 78; TEMP 37.2; O2SAT 97
[2016-07-17 08:37] VITALS: BP 113/68; PULSE 83
[2016-07-17] MEDS: SPIRONOLACTONE 25 MG TAB PO SCH (08:41)
[2016-07-17] MEDS: FUROSEMIDE INJ 40 MG in SYRINGE 0 ML IV SCH ×2 (08:41→17:36)
[2016-07-17] MEDS: ARIPIprazole TAB 5 MG TAB PO SCH (08:41)
[2016-07-17] MEDS: POTASSIUM CHLORIDE 20 MEQ TABCR PO SCH ×3 (08:42→21:03)
[2016-07-17] MEDS: LISINOPRIL 10 MG TAB PO SCH (08:42)
[2016-07-17] MEDS: CARVEDILOL 6.25 MG TAB PO SCH ×2 (08:42→21:01)
[2016-07-17] MEDS: ASPIRIN 81 MG ECTAB PO SCH (08:42)
[2016-07-17] MEDS: INSULIN ASPART 100 UNITS/ML 3 ML PEN SC SCH ×4 (08:49→21:00)
--- NOTE | 2016-07-17 11:10 | CARDIOLOGY PROGRESS NOTE ---
DATE: 07/17/2016 DATE: 07/17/2016. SUBJECTIVE: Mr. Johnson claims he is feeling better. He was happy that he was able to eat breakfast and ordered a second bowl of oatmeal as well as a peanut butter and butter sandwich. He still continues to have dyspnea even with mild ambulation. He still complains of some swelling in his lower extremities but overall did not verbalize additional complaints. PHYSICAL EXAMINATION: GENERAL: He was alert and oriented to place. His processing did seem to be impaired and her perseverated primarily on food and his peanut butter and butter sandwich. VITAL SIGNS: Currently include a blood pressure 113/68 with a pulse of 83. HEENT: Sclera are anicteric. LUNGS: Auscultation of his lung painting reveal occasional crackles at the bases bilaterally but overall good air movement without wheezes. CARDIAC EXAMINATION: Revealed him to be in regular rhythm without murmur. LOWER EXTREMITIES: Did reveal continued 1+ pitting around the SCDs which were in place. LABORATORY STUDIES: Today included a sodium 138, potassium 4.3, creatinine was 0.78, BUN was 31.4. ASSESSMENT AND PLAN: 1. Acute decompensated left ventricular systolic failure. The patient continues to diurese quite well in his current regimen. I think he still has evidence of volume overload and we can continue his current diuresis at the current doses. We will need to monitor his electrolytes and renal function closely as he continues to diurese. I agree with maintaining him on his previously prescribed outpatient medical regimen. 2. Cardiomyopathy: This is of unclear etiology, possibly ischemic. The patient however does not appear to be a great candidate for additional intervention and therefore at this point we will defer any additional ischemic evaluation. I think we will have a better assessment of whether more work needs to be done once he is more ambulatory and active. In that setting if he develops symptoms of chest pain or angina angiography might be indicated. Otherwise, we can maintain medical therapy. The main concern is that he has been noncompliant in the past and therefore does not appear to be a good candidate for additional coronary interventions should they be required. I will continue to discuss this with the patient during his hospitalization and will continue to follow him.
[2016-07-17 15:31] VITALS: BP 96/60; PULSE 77; TEMP 36.6; O2SAT 95
[2016-07-17] MEDS ORDERED: NURSING VERBAL MED ORDER ONE (16:00)
[2016-07-17] MEDS: SENNA 8.6 MG TAB PO SCH (17:33)
[2016-07-17 17:38] VITALS: BP 103/70; PULSE 77
[2016-07-17 18:00] VITALS: O2SAT 96
[2016-07-17 21:00] VITALS: BP 105/66; PULSE 77
[2016-07-17] MEDS: ENOXAPARIN 40 MG/0.4 ML SYR SC SCH (21:01)
[2016-07-17] MEDS: BENZTROPINE MESYLATE 1 MG TAB PO SCH (21:03)
--- NOTE | 2016-07-17 21:17 | Hospitalist Progress Note ---
Hospitalist Progress Note Date of Service Jul 17, 2016. Subjective Pt evaluation today including: conversation w/ patient, lab review, review of inpatient medication list Much improved today, diuresed 4 L, wants a stool softener. Tells me very clearly he does not want a cardiac cath or ICD for his severe CHF. He would like to be made a DNR/DNI All Other Systems: Reviewed and Negative Objective Vital Signs Date Time Temp Pulse Resp B/P Pulse Ox O2 Delivery O2 Flow Rate FiO2 07/17/16 18:00 96 Room Air 07/17/16 17:38 77 16 103/70 07/17/16 16:00 Nasal Cannula 2.0 07/17/16 15:31 36.6 77 16 96/60 95 Nasal Cannula 2.0 07/17/16 10:51 Nasal Cannula 2.0 07/17/16 08:37 83 113/68 07/17/16 08:09 37.2 78 20 100/67 97 Nasal Cannula 2.0 07/16/16 23:40 Room Air 07/16/16 22:37 36.6 84 20 112/72 93 Room Air Physical Exam General Appearance: WD/WN, no apparent distress Eyes: normal inspection, EOMI, sclerae normal Neck: trachea midline Respiratory/Chest: no respiratory distress, no accessory muscle use, + crackles (at bases bilat) Cardiovascular: regular rate, rhythm, no murmur, + pertinent finding (2+ pitting edema legs bilat) Abdomen: normal bowel sounds, non tender, soft Extremities: no calf tenderness Neurologic/Psychiatric: alert, oriented x 3 (seems much clearer today and makes good eye contact, not anxious or depressed) Skin: normal color, + rash (shingles rash with scarring and hyperpigmented plaques right hemithorax in dermatomal distribution) Laboratory Results Last 24 Hours Test 07/17/16 05:32 07/17/16 07:44 07/17/16 11:20 07/17/16 16:12 White Blood Count 6.47 K/uL Red Blood Count 4.82 M/uL Hemoglobin 12.8 g/dL Hematocrit 39.8 % Mean Corpuscular Volume 82.6 fL Mean Corpuscular Hemoglobin 26.6 pg Mean Corpuscular Hemoglobin Concent 32.2 g/dl Platelet Count 251 K/uL Mean Platelet Volume 9.7 fL Neutrophils (%) (Auto) 77.0 % Lymphocytes (%) (Auto) 14.5 % Monocytes (%) (Auto) 7.1 % Eosinophils (%) (Auto) 0.9 % Basophils (%) (Auto) 0.2 % Neutrophils # (Auto) 4.98 K/uL Lymphocytes # (Auto) 0.94 K/uL Monocytes # (Auto) 0.46 K/uL Eosinophils # (Auto) 0.06 K/uL Basophils # (Auto) 0.01 K/uL RDW Standard Deviation 60.3 fL RDW Coefficient of Variation 19.9 % Immature Granulocyte % (Auto) 0.3 % Immature Granulocyte # (Auto) 0.02 K/uL Sodium Level 138 mmol/L Potassium Level 4.3 mmol/L Chloride Level 101 mmol/L Carbon Dioxide Level 28 mmol/L Anion Gap 9.0 mmol/L Blood Urea Nitrogen 25 mg/dl Creatinine 0.78 mg/dl Est Creatinine Clear Calc Drug Dose 98.2 ml/min Estimated GFR () 112.1 Estimated GFR (Non- 96.7 BUN/Creatinine Ratio 31.4 Random Glucose 81 mg/dl Calcium Level 8.1 mg/dl Magnesium Level 2.2 mg/dl Total Bilirubin 0.9 mg/dl Direct Bilirubin 0.4 mg/dl Aspartate Amino Transf (AST/SGOT) 22 U/L Alanine Aminotransferase (ALT/SGPT) 72 U/L Alkaline Phosphatase 92 U/L Total Protein 6.3 gm/dl Albumin 2.6 gm/dl Bedside Glucose 81 mg/dl 128 mg/dl 152 mg/dl Test 07/17/16 20:22 Bedside Glucose 104 mg/dl Assessment and Plan The patient is a 61-year-old male resident of [facility] ,who presents to the emergency department with shortness of breath and leg swelling that initially began about 4 months ago, worsening over the past 2-3 days. He apparently had another recent hospitalization for CHF and is traditionally noncompliant with taking all of the prescribed meds. Notes from longterm records state he has to be bribed with snacks and things to get him to take his meds. He was found in the emergency department to have a pulse ox decreased to 88% on room air. The patient was in the mental health unit at [facility] and has known severe mental health issues. Acute on chronic systolic CHF, Acute hypoxemic respiratory failure -severe but continues to improve, diuresed 4.1L so far this stay CT Chest showed 1. Moderate bilateral pleural effusions with associated lower lobe airspace opacities and volume loss which favor compressive atelectasis.2. Moderate cardiomegaly.3. Mild groundglass opacities which favor pulmonary edema.4. Generalized anasarca. ECHO: *Left ventricular systolic function is severely reduced, EF 15-20% * There are regional wall motion abnormalities as specified. * The right ventricle is mildly dilated. * The right ventricular systolic function is moderate to severely reduced. * There is mild mitral regurgitation. * Right ventricular systolic pressure is normal. No events on telemetry unit--> tx to medical. He has diuresed nicely with IV lasix and is no longer hypoxemic, is feeling much better, troponin negative -continue Lasix 40 mg IV twice a day as still hypervolemic -continue aspirin 81 mg by mouth daily, carvedilol 6.25 mg by mouth twice a day , lisinopril but lower to 10mg daily (given increase in spironolactone), potassium extended release 20 mEq daily will be increased to 3 times a day, and increase spironolactone from 25-50 mg by mouth daily. -compliance will be an issue -Cardiology input appreciated-case d/w Dr. Hernandez -pt clearly does not want any aggressive measures like cardiac cath to see if has CAD, and declines ICD for primary prevention, wants to be a DNR/DNI Diabetes mellitus--hold metformin 1000 mg by mouth twice a day and regular insulin and glimepiride 2 mg by mouth daily. We'll place patient on Accu-Cheks before meals and at bedtime with NovoLog coverage. We'll restart glimepiride if sugars become elevated. Psychiatry--continue Abilify 5 mg by mouth daily and benztropine 0.5 mg by mouth at bedtime. Abnormal liver enzymes--may be secondary to hepatic congestion but also has h/o HCV as per longterm records- now resolved with diuresis Shingles-for 4 months, improving -no treatment indicated Proph-Lovenox -Dispo-to longterm in 1-2 days
[2016-07-18 00:33] VITALS: BP 97/61; PULSE 74; TEMP 36.7; O2SAT 93
[2016-07-18 07:14] LABS: BUN/CREATININE RATIO 32.5 (10-20); CALCIUM 7.7 mg/dl (8.5-10.1); CREATININE 0.92 mg/dl (0.60-1.40); MAGNESIUM 2.4 mg/dl (1.8-2.4); POTASSIUM 4.5 mmol/L (3.5-5.1)
[2016-07-18 07:17] VITALS: BP 121/79; PULSE 84; TEMP 36.7; O2SAT 94
[2016-07-18] MEDS: ARIPIprazole TAB 5 MG TAB PO SCH (08:44)
[2016-07-18] MEDS: SPIRONOLACTONE 25 MG TAB PO SCH (08:45)
[2016-07-18] MEDS: FUROSEMIDE INJ 40 MG in SYRINGE 0 ML IV SCH ×2 (08:46→17:14)
[2016-07-18] MEDS: ASPIRIN 81 MG ECTAB PO SCH (08:46)
[2016-07-18] MEDS: CARVEDILOL 6.25 MG TAB PO SCH ×2 (08:46→21:29)
[2016-07-18] MEDS: LISINOPRIL 10 MG TAB PO SCH (08:47)
[2016-07-18] MEDS: SENNA 8.6 MG TAB PO SCH (08:47)
[2016-07-18] MEDS: POTASSIUM CHLORIDE 20 MEQ TABCR PO SCH ×3 (08:47→21:29)
[2016-07-18] MEDS: INSULIN ASPART 100 UNITS/ML 3 ML PEN SC SCH ×4 (08:55→21:35)
--- NOTE | 2016-07-18 09:27 | CARDIOLOGY PROGRESS NOTE ---
DATE: 07/18/2016 DATE: 07/18/2016. SUBJECTIVE: This morning Mr. Johnson claims to be feeling well. He was able to take a shower yesterday and did report some dyspnea with even at minimal exertion. He did not report dizziness however. At rest he claims to have reasonable breathing. He was also complaining of some itching under the right pectoral region. PHYSICAL EXAMINATION: GENERAL: The patient did not appear to be in acute distress. He is a pleasant individual who is alert and oriented. He appeared to answer all questions appropriately. CURRENT VITAL SIGNS: Included blood pressure of 121/79 with pulse of 84. EYES: Sclera anicteric. LUNGS: Auscultation of both lung painting revealed overall diminished air movement but no overt rales or wheezes. CARDIAC EXAMINATION: Revealed him to be in a regular rhythm with soft holosystolic murmur. EXTREMITIES: Evaluation of lower extremities revealed significant peripheral edema. LABORATORY DATA: Studies obtained today include sodium 136, potassium 4.5, BUN was 30, creatinine was 0.92. ASSESSMENT AND PLAN: Acute decompensated left ventricular systolic dysfunction. The patient according to the records did not diurese well yesterday although he does report significant urine output. Previously he had an aggressive diuresis on his current diuretic regimen. Whether the readings are inaccurate is unclear. At this point I think it would reasonable to continue his twice daily IV diuretic and monitor his output. He seems to be tolerating his usual oral heart failure regimen well and I would continue his medicines also. I did have a discussion with the patient today regarding additional interventions or test to include cardiac catheterization or device type therapy. The patient however does not appear to be interested in any additional procedures or tests at this time. We did discuss this at multiple different ways and I questioned him regarding procedures several different times. Each time he seemed fairly adamant that he prefers medical therapy exclusively. At this point I would continue the current regimen, monitor his progress and eventually switch him to an oral diuretic regimen. I think as his condition improves will have an opportunity to observe him when he is ambulatory and perform more activity to see if we have achieved adequate compensatory state.
[2016-07-18 15:50] VITALS: BP 107/63; PULSE 76; TEMP 36.7; O2SAT 98
[2016-07-18] MEDS ORDERED: NURSING VERBAL MED ORDER ONE (18:15)
[2016-07-18] MEDS ORDERED: DOCUSATE SODIUM 100 MG CAP ONE (18:17)
[2016-07-18] MEDS ORDERED: POLYETHYLENE (MIRALAX) 17 GM PACK ONE (18:18)
--- NOTE | 2016-07-18 18:39 | Hospitalist Progress Note ---
Hospitalist Progress Note Date of Service Jul 18, 2016. Subjective Pt feels FRIEND with going to bathroom, ok at rest, I/Os not recorded well but reports good UOP. No CP Abdomen: + constipation All Other Systems: Reviewed and Negative Objective Vital Signs Date Time Temp Pulse Resp B/P Pulse Ox O2 Delivery O2 Flow Rate FiO2 07/18/16 15:50 36.7 76 18 107/63 98 Room Air 1.5 07/18/16 07:45 Room Air 07/18/16 07:17 36.7 84 20 121/79 94 07/18/16 00:33 36.7 74 16 97/61 93 Nasal Cannula 2.0 07/18/16 00:30 Room Air 07/17/16 21:00 77 105/66 Physical Exam General Appearance: WD/WN, no apparent distress Eyes: normal inspection, sclerae normal Neck: trachea midline Respiratory/Chest: no respiratory distress, no accessory muscle use, + crackles (and dec at bases bilat) Cardiovascular: regular rate, rhythm, no murmur, + pertinent finding (2+ pitting edema legs bilat) Abdomen: normal bowel sounds, non tender, soft Extremities: non-tender Neurologic/Psychiatric: alert Skin: normal color, + pertinent finding (very dry and cracked scaly skin on legs, right anterior tibia with small open wound without erythema or drainage) Laboratory Results Last 24 Hours Test 07/17/16 20:22 07/18/16 06:10 07/18/16 07:43 07/18/16 11:10 Bedside Glucose 104 mg/dl 208 mg/dl 140 mg/dl Sodium Level 136 mmol/L Potassium Level 4.5 mmol/L Chloride Level 99 mmol/L Carbon Dioxide Level 29 mmol/L Anion Gap 8.0 mmol/L Blood Urea Nitrogen 30 mg/dl Creatinine 0.92 mg/dl Est Creatinine Clear Calc Drug Dose 83.3 ml/min Estimated GFR () 102.9 Estimated GFR (Non- 88.8 BUN/Creatinine Ratio 32.5 Random Glucose 217 mg/dl Calcium Level 7.7 mg/dl Magnesium Level 2.4 mg/dl Test 07/18/16 16:22 Bedside Glucose 118 mg/dl Assessment and Plan The patient is a 61-year-old male resident of [facility] ,who presents to the emergency department with shortness of breath and leg swelling that initially began about 4 months ago, worsening over the past 2-3 days. He apparently had another recent hospitalization for CHF and is traditionally noncompliant with taking all of the prescribed meds. Notes from [facility] records state he has to be bribed with snacks to get him to take his meds. He was found in the emergency department to have a pulse ox decreased to 88% on room air. The patient was in the mental health unit at [facility] and has known severe mental health issues. Acute on chronic systolic CHF, Acute hypoxemic respiratory failure -severe but continues to improve, had diuresed 4.1L so far but now I/Os not accurately recorded the last [address] Chest showed 1. Moderate bilateral pleural effusions with associated lower lobe airspace opacities and volume loss which favor compressive atelectasis.2. Moderate cardiomegaly.3. Mild groundglass opacities which favor pulmonary edema.4. Generalized anasarca. ECHO: *Left ventricular systolic function is severely reduced, EF 15-20% * There are regional wall motion abnormalities as specified. * The right ventricle is mildly dilated. * The right ventricular systolic function is moderate to severely reduced. * There is mild mitral regurgitation. * Right ventricular systolic pressure is normal. No events on telemetry unit--> tx to medical. He has diuresed nicely with IV lasix and is no longer hypoxemic, is feeling much better, troponin negative -continue Lasix 40 mg IV twice a day as still hypervolemic, may switch to po lasix tomorrow -check daily weights and reinforced need for strict I/Os with RN -continue aspirin 81 mg by mouth daily, carvedilol 6.25 mg by mouth twice a day , lisinopril but lower to 10mg daily (given increase in spironolactone), potassium extended release 20 mEq daily will be increased to 3 times a day, and increase spironolactone from 25-50 mg by mouth daily. -compliance will be an issue -Cardiology input appreciated-case d/w Dr. Hernandez -pt clearly does not want any aggressive measures like cardiac cath to see if has CAD, and declines ICD for primary prevention, wants to be a DNR/DNI Diabetes mellitus--hold metformin 1000 mg by mouth twice a day and regular insulin and glimepiride 2 mg by mouth daily. We'll place patient on Accu-Cheks before meals and at bedtime with NovoLog coverage. We'll restart glimepiride if sugars become elevated. Psychiatry--continue Abilify 5 mg by mouth daily and benztropine 0.5 mg by mouth at bedtime. Abnormal liver enzymes--may be secondary to hepatic congestion but also has h/o HCV as per [facility] records- now resolved with diuresis Shingles-for 4 months, improving -no treatment indicated Proph-Lovenox -Dispo-to [facility] in 1-2 days
[2016-07-18] MEDS: DOCUSATE SODIUM 100 MG CAP PO SCH (21:25)
[2016-07-18 21:27] VITALS: BP 119/71; PULSE 87
[2016-07-18] MEDS: BENZTROPINE MESYLATE 1 MG TAB PO SCH (21:28)
[2016-07-18] MEDS: ENOXAPARIN 40 MG/0.4 ML SYR SC SCH (21:29)
[2016-07-18 23:17] VITALS: BP 125/78; PULSE 86; TEMP 36.8; O2SAT 90
[2016-07-19 07:42] LABS: BUN/CREATININE RATIO 30.7 (10-20); CALCIUM 7.8 mg/dl (8.5-10.1); CREATININE 0.86 mg/dl (0.60-1.40); MAGNESIUM 2.5 mg/dl (1.8-2.4); POTASSIUM 4.4 mmol/L (3.5-5.1)
[2016-07-19 08:20] VITALS: BP 117/73; PULSE 81; TEMP 36.5; O2SAT 91
[2016-07-19] MEDS: FUROSEMIDE INJ 40 MG in SYRINGE 0 ML IV SCH ×2 (08:33→16:59)
[2016-07-19] MEDS: CARVEDILOL 6.25 MG TAB PO SCH ×2 (08:34→21:33)
[2016-07-19] MEDS: DOCUSATE SODIUM 100 MG CAP PO SCH ×2 (08:34→21:32)
[2016-07-19] MEDS: SENNA 8.6 MG TAB PO SCH (08:34)
[2016-07-19] MEDS: ARIPIprazole TAB 10 MG TAB PO SCH (08:34)
[2016-07-19] MEDS: ASPIRIN 81 MG ECTAB PO SCH (08:34)
[2016-07-19] MEDS: POTASSIUM CHLORIDE 20 MEQ TABCR PO SCH ×3 (08:35→21:33)
[2016-07-19] MEDS: LISINOPRIL 10 MG TAB PO SCH (08:35)
[2016-07-19] MEDS: POLYETHYLENE (MIRALAX) 17 GM PACK PO SCH (08:35)
[2016-07-19] MEDS: SPIRONOLACTONE 25 MG TAB PO SCH (08:35)
[2016-07-19] MEDS: INSULIN ASPART 100 UNITS/ML 3 ML PEN SC SCH ×4 (08:39→21:00)
--- NOTE | 2016-07-19 13:29 | CARDIOLOGY PROGRESS NOTE ---
DATE: 07/19/2016 DATE: 07/19/2016. SUBJECTIVE: This morning Mr. Johnson claims to be feeling well. He is still concerned about some dyspnea at rest and with minimal activity. When he ambulates to the bathroom he is very tired afterwards. He does describe no more orthopnea and does not lay flat. PHYSICAL EXAMINATION: GENERAL: He was alert and oriented. He appeared all questions appropriately. CURRENT VITAL SIGNS: Included blood pressure of 117/73 with pulse of 81. EYES: Sclera anicteric. LUNGS: Auscultation of his lung painting revealed them to be generally clear with only some mild expiratory wheezing. He had good air movement overall. CARDIAC EVALUATION: Revealed him to be in a regular rhythm and free of murmurs. EXTREMITIES: Evaluation of lower extremities revealed marked peripheral edema. LABORATORY DATA: Laboratory studies obtained today included a white cell count of 6.4, hemoglobin of 12.8, platelet count of 251, sodium 137, potassium 4.4, BUN was 26, creatinine was 0.8. IMPRESSION AND PLAN: Acute decompensated left ventricular failure. The patient continues to have a good diuresis with stability of his renal function and electrolytes. While his symptoms have improved little his lung examination is relatively unremarkable today. I think currently we can continue the aggressive diuresis with intravenous Lasix in the hopes of reducing his peripheral edema and perhaps tomorrow attempt to switch to an oral regimen in hopes of maintaining adequate diuresis once he is discharged. He appears to be otherwise tolerating his outpatient medical regimen well. Per previous discussion with the patient we will not pursue any additional diagnostic evaluation. The patient is scheduled to be freed from the residential by the end of the month and will likely seek additional medical followup in [facility]. My hope is that upon discharge the patient will continue to take his medications as his noncompliance has likely played a prominent role in his recent decompensation.
[2016-07-19 15:52] VITALS: BP 124/74; PULSE 79; TEMP 36.7; O2SAT 96
--- NOTE | 2016-07-19 18:10 | Hospitalist Progress Note ---
Hospitalist Progress Note Date of Service Jul 19, 2016. Subjective Pt evaluation today including: conversation w/ patient, physical exam, lab review Continues to diurese, feeling well, some FRIEND with getting up to the bathroom. Finally moved his bowels last night and this AM All Other Systems: Reviewed and Negative Objective Vital Signs Date Time Temp Pulse Resp B/P Pulse Ox O2 Delivery O2 Flow Rate FiO2 07/19/16 15:52 36.7 79 20 124/74 96 2.0 07/19/16 08:20 36.5 81 20 117/73 91 07/19/16 08:00 Room Air 07/19/16 00:10 Room Air 07/18/16 23:17 36.8 86 16 125/78 90 Room Air 07/18/16 22:48 Room Air 07/18/16 21:27 87 119/71 Physical Exam General Appearance: WD/WN, no apparent distress Eyes: normal inspection, sclerae normal Neck: trachea midline Respiratory/Chest: lungs clear, normal breath sounds, no respiratory distress, no accessory muscle use Cardiovascular: regular rate, rhythm, no murmur, + pertinent finding (1-2+ pitting edema legs to knee sbilat) Abdomen: normal bowel sounds, non tender, soft Extremities: no calf tenderness Neurologic/Psychiatric: alert Skin: warm/dry Laboratory Results Last 24 Hours Test 07/18/16 19:58 07/19/16 06:44 07/19/16 07:27 07/19/16 11:21 Bedside Glucose 191 mg/dl 193 mg/dl 162 mg/dl Sodium Level 137 mmol/L Potassium Level 4.4 mmol/L Chloride Level 102 mmol/L Carbon Dioxide Level 28 mmol/L Anion Gap 7.0 mmol/L Blood Urea Nitrogen 26 mg/dl Creatinine 0.86 mg/dl Est Creatinine Clear Calc Drug Dose 96.8 ml/min Estimated GFR () 107.7 Estimated GFR (Non- 92.9 BUN/Creatinine Ratio 30.7 Random Glucose 141 mg/dl Calcium Level 7.8 mg/dl Magnesium Level 2.5 mg/dl Test 07/19/16 16:14 Bedside Glucose 124 mg/dl Assessment and Plan The patient is a 61-year-old male resident of [facility] ,who presents to the emergency department with shortness of breath and leg swelling that initially began about 4 months ago, worsening over the past 2-3 days. He apparently had another recent hospitalization for CHF and is traditionally noncompliant with taking all of the prescribed meds. Notes from [facility] records state he has to be bribed with snacks to get him to take his meds. He was found in the emergency department to have a pulse ox decreased to 88% on room air. The patient was in the mental health unit at [facility] and has known severe mental health issues. Acute on chronic systolic CHF, Acute hypoxemic respiratory failure - continues to improve, has diuresed 6.4L so far, weaning off O2 CT Chest showed 1. Moderate bilateral pleural effusions with associated lower lobe airspace opacities and volume loss which favor compressive atelectasis.2. Moderate cardiomegaly.3. Mild groundglass opacities which favor pulmonary edema.4. Generalized anasarca. ECHO: *Left ventricular systolic function is severely reduced, EF 15-20% * There are regional wall motion abnormalities as specified. * The right ventricle is mildly dilated. * The right ventricular systolic function is moderate to severely reduced. * There is mild mitral regurgitation. * Right ventricular systolic pressure is normal. No events on telemetry unit--> tx to medical. He has diuresed nicely with IV lasix , is feeling better, troponin negative, still some FRIEND -need to assess need for O2 prior to discharge hopefully Wed- -continue Lasix 40 mg IV twice a day as still hypervolemic, may switch to po lasix tomorrow 40mg po bid -check daily weights and strict I/Os -continue aspirin 81 mg by mouth daily, carvedilol 6.25 mg by mouth twice a day , lisinopril 10mg daily, potassium extended release 20 mEq tid and spironolactone 50 mg daily -compliance will be an issue potentially -Cardiology input appreciated-case d/w Dr. Hernandez -pt clearly does not want any aggressive measures like cardiac cath to see if has CAD, and declines ICD for primary prevention, wants to be a DNR/DNI -will need Cardiology f/u as an outpatient as he is being [facility] from [facility] on 07/[facility]/16 Diabetes mellitus--stable -holding metformin 1000 mg by mouth twice a day and regular insulin and glimepiride 2 mg by mouth daily. We'll place patient on Accu-Cheks before meals and at bedtime with NovoLog coverage. We'll restart glimepiride if sugars become elevated. Schizophrenia--stable -continue Abilify 5 mg by mouth daily and benztropine 0.5 mg by mouth at bedtime. Abnormal liver enzymes--may be secondary to hepatic congestion but also has h/o HCV as per [facility] records- now resolved with diuresis Shingles-for 4 months, with scarring and crusted over lesions, improving -no treatment indicated Proph-Lovenox -Dispo-to [facility] possibly tomorrow
[2016-07-19 18:11] VITALS: O2SAT 94
[2016-07-19 21:28] VITALS: BP 128/78; PULSE 81
[2016-07-19] MEDS: BENZTROPINE MESYLATE 1 MG TAB PO SCH (21:32)
[2016-07-19] MEDS: ENOXAPARIN 40 MG/0.4 ML SYR SC SCH (21:34)
[2016-07-20] VITALS: O2SAT 92
[2016-07-20 00:48] VITALS: BP 119/68; PULSE 82; TEMP 36.7; O2SAT 92
[2016-07-20 07:45] VITALS: BP 121/76; PULSE 77; TEMP 36.6; O2SAT 98
[2016-07-20] MEDS: LISINOPRIL 10 MG TAB PO SCH (08:24)
[2016-07-20] MEDS: SPIRONOLACTONE 25 MG TAB PO SCH (08:24)
[2016-07-20] MEDS: ARIPIprazole TAB 10 MG TAB PO SCH (08:24)
[2016-07-20] MEDS: ASPIRIN 81 MG ECTAB PO SCH (08:25)
[2016-07-20] MEDS: POTASSIUM CHLORIDE 20 MEQ TABCR PO SCH ×2 (08:25→12:02)
[2016-07-20] MEDS: DOCUSATE SODIUM 100 MG CAP PO SCH (08:25)
[2016-07-20] MEDS: SENNA 8.6 MG TAB PO SCH (08:26)
[2016-07-20] MEDS: CARVEDILOL 6.25 MG TAB PO SCH (08:26)
[2016-07-20] MEDS: POLYETHYLENE (MIRALAX) 17 GM PACK PO SCH (08:26)
[2016-07-20] MEDS: INSULIN ASPART 100 UNITS/ML 3 ML PEN SC SCH ×2 (08:29→12:01)
--- NOTE | 2016-07-20 08:50 | Progress Note ---
Subjective Date of Service: Jul 20, 2016. Problem List Medical Problems: (1) Acute on chronic congestive heart failure Status: Acute (2) Hypoxia Status: Acute (3) Pulmonary edema Status: Acute Objective Vital Signs Date Time Temp Pulse Resp B/P Pulse Ox O2 Delivery O2 Flow Rate FiO2 07/20/16 07:45 36.6 77 18 121/76 98 2.0 07/20/16 00:48 36.7 82 18 119/68 92 Room Air 07/20/16 00:00 92 Nasal Cannula 2.0 07/19/16 21:28 81 128/78 07/19/16 20:00 Room Air 07/19/16 18:11 94 Room Air 07/19/16 16:10 Nasal Cannula 2.0 07/19/16 15:52 36.7 79 20 124/74 96 2.0 Laboratory Results Last 24 Hours Test 07/19/16 11:21 07/19/16 16:14 07/19/16 20:24 07/20/16 07:37 Bedside Glucose 162 mg/dl 124 mg/dl 132 mg/dl 161 mg/dl Assessment and Plan The patient is a 61-year-old male resident of [facility] , the pt has acute on chronic systolic heart failure, The patient was in the mental health unit at [facility] and has known severe mental health issues. Acute on chronic systolic CHF, Acute hypoxemic respiratory failure, weaning off O2 CT Chest showed . Moderate bilateral pleural effusions with associated lower lobe airspace opacities and volume loss which favor compressive atelectasis, Moderate cardiomegaly. ECHO: EF severely reduced, 15-20%, Lasix 40 mg twice a day -check daily weights aspirin 81 mg by mouth daily, carvedilol 6.25 mg by mouth twice a day, lisinopril 10mg daily, potassium extended release 20 mEq tid and spironolactone 50 mg daily -pt clearly does not want any aggressive measures like cardiac cath to see if has CAD, and declines ICD for primary prevention, wants to be a DNR/DNI -will need Cardiology f/u as an outpatient, reportedly being released from [facility] on 07/[facility]/16 Diabetes mellitus--typically on metformin and glimeparide, now on ssi Schizophrenia--stableAbilify 5 mg by mouth daily and benztropine 0.5 mg by mouth at bedtime. Abnormal liver enzymes--may be secondary to hepatic congestion as resolved with unloading of volume, but also has h/o HCV Shingles, with scarring and crusted over lesions, Proph-Lovenox -Dispo-to [facility]
[2016-07-20] MEDS ORDERED: FUROSEMIDE 40 MG TAB PO SCH (09:00)
--- NOTE | 2016-07-20 11:46 | CARDIOLOGY PROGRESS NOTE ---
DATE: 07/20/2016 This morning Mr. Johnson claims to be feeling well. He ate a good breakfast. He denies significant dyspnea at rest and in fact has been ambulatory to the bathroom today without notable dyspnea. He has no pain currently and no dizziness. On physical examination he was alert and oriented, mood and affect appeared normal, answered all questions appropriately. His current vital signs include blood pressure 121/76 with a pulse of 77. Auscultation of his lungs revealed occasional crackles to the mid lung painting bilaterally. There was no expiratory wheezing. Cardiac examination reveals him to be in a regular rhythm without murmurs. Evaluation of the lower extremities revealed continued peripheral edema slightly improved from yesterday. No laboratory studies were obtained today. ASSESSMENT AND PLAN: Acute decompensated left ventricular failure. The patient diuresed quite well yesterday on his current diabetic region and it would seem reasonable to continue this regimen; he still has an element of volume overload. He has marked jugular venous distention and likely still has an element of dyspnea even with minimal ambulation. He is tolerating his heart failure regimen well otherwise. If he continues to diurese aggressively we may be able to switch him to an oral regimen in a day or so.
[2016-07-20] MEDS ORDERED: NVLGIPEN SC (13:47)
[2016-07-20] MEDS ORDERED: LSN10 PO (13:47)
[2016-07-20] MEDS ORDERED: SNK PO (13:47)
[2016-07-20] MEDS ORDERED: CLC100 PO (13:47)
[2016-07-20] MEDS ORDERED: OXGN (13:52)
[2016-07-20] MEDS ORDERED: FRS/40 PO (13:52)
[2016-07-20 14:02] VITALS: BP 121/76; PULSE 77; TEMP 36.6; O2SAT 98
--- NOTE | 2016-07-20 14:03 | Discharge Instructions ---
Discharge Instructions Date of Service Jul 20, 2016. Admission Reason for Admission: Acute On Chronic Congestive Heart Failure, Hypoxia Discharge Discharge Diagnosis / Problem: acute on chronic systolic heart failure Discharge Goals Goal(s): Diagnostic testing, Therapeutic intervention Activity Recommendations Activity Limitations: resume your previous activity Please follow weight and adjust lasix as needed, you may consider outpt cardiology follow up Please continue sliding scale unsulin until you can be confident pt will take oral meds and eat to help avoid hypoglycemic issues . Instructions / Follow-Up Instructions / Follow-Up Call your Primary Care doctor if any of the following symptoms or problems start or get worse: * Shortness of breath or difficulty breathing * Wake up at night short of breath * Chest pain * Cough * Swelling of your hands, feet, or legs * More fatigued or tired with your normal activity * Palpitations - sudden fast heart beats WEIGHT * Weigh yourself every morning after using the bathroom. * Use the same scale. * Wear the same amount of clothing. * Write your weight down on a chart. * Call your Primary Care doctor if you gain more than 2-3 pounds in 1-2 days. MEDICATIONS * Use this discharge instruction sheet for medication instructions. * Take your medications at the time your doctor ordered. * Do not skip a dose of your medicines. * If you miss a dose of medicine, take it as soon as possible, but DO NOT DOUBLE A DOSE. * Read your medicine information when you get home. * Know all of the side effects of your medicine. If in doubt, ask your pharmacist * Call your Primary Care doctor's office if you have any side effects. * Be sure all of your doctors know what medicine and herbs you take (including cold, flu, and herbal medicine). Take the following with you to your follow-up doctor appointments: * Weight Chart * Medication List * List of questions Do not drink excessive alcohol, beer or wine. Current Hospital Diet Patient's current hospital diet: Diabetes Type 2 Diet, AHA Diet (Heart Healthy) Discharge Diet Recommended Diet: Low Sodium Diet (2gm Na) Pending Studies Studies pending at discharge: no Medical Emergencies . Who to Call and When: Call 911 or go to the Emergency Room if: * If at any time you feel your situation is an emergency * You have tightness or pain in your chest that does not go away with rest or Nitroglycerin * You are very short of breath even with rest . Non-Emergent Contact Non-Emergency issues call your: Primary Care Provider Call Non-Emergent contact if: temperature is above 101, your pain is unusual for you . . "Provider Documentation" section prepared by Monty Valentin. VTE Core Measure Inpt VTE Proph given/why not?: Enoxaparin (Lovenox)SQ, SCD's
--- NOTE | 2016-07-20 18:01 | Discharge Summary ---
Discharge Summary Date of Service Jul 20, 2016. Discharge Summary Admission Date: Jul 15, 2016 at 17:13 Discharge Date: Jul 20, 2016 Principal Diagnosis: acute on chronic systolic heart failure, medical non compliance Medication Reconciliation New Medications: Docusate Sodium (Docusate Sodium) 100 Mg Cap 100 MG PO BID, #60 CAP Insulin Aspart (Novolog Flexpen) 100 Units/Ml Inj 0 UNITS SC ACHS, #1 PEN once is stable may consider returing to oral medications Lisinopril (Zestril) 10 Mg Tab 10 MG PO QAM, #30 TAB Senna (Senna Lax) 8.6 Mg Tab 8.6 MG PO DAILY, #60 TAB Changed Medications: Furosemide (Lasix) 40 Mg Tab 40 MG PO UD, #90 DOSE (Changed from: BID) 2 pills in am one in pm Continued Medications: Aripiprazole (Abilify) 5 Mg Tab 5 MG PO DAILY Aspirin (Aspirin Ec) 81 Mg Tab 81 MG PO DAILY Benztropine Mesylate (Cogentin) 1 Mg Tab 0.5 MG PO HS Carvedilol (Coreg) 6.25 Mg Tab 6.25 MG PO BID Oxygen (Oxygen) Gas 2 LITERS NA PRN Potassium Ext Rel (Klor-Con) 20 Meq Tabcr 20 MEQ PO DAILY Spironolactone (Aldactone) 25 Mg Tab 50 MG PO DAILY Discontinued Medications: Glimepiride (Glimepiride) 2 Mg Tab 2 MG PO DAILY Insulin Human Regular (Humulin R) 100 Units/Ml Susp 2-12 UNITS SC UD SLIDING SCALE: 201-250 = 2 UNITS 251-300 = 4 UNITS 301-350 = 6 UNITS 351-400 = 8 UNITS 401-450 = 10 UNITS 451-500 = 12 UNITS >500 CALL Lisinopril (Zestril) 5 Mg Tab 25 MG PO DAILY Metformin Hcl (Glucophage) 1,000 Mg Tab 1000 MG PO BID Discharge Exam Review of Systems: Constitutional: + fatigue, + weakness, No chills, No fever Respiratory: No cough, No dyspnea on exertion, No sputum Cardiovascular: + edema, No chest pain, No claudication Abdomen: No diarrhea, No nausea, No pain, No vomiting Genitourinary - Male: No dysuria, No hematuria Neurologic: No memory loss, No paralysis Psychiatric: No anhedonism, No depression symptoms Physical Exam: General Appearance: WD/WN, no apparent distress Neck: supple, no JVD Respiratory/Chest: chest non-tender, lungs clear, normal breath sounds Cardiovascular: regular rate, rhythm, + systolic murmur Abdomen / GI: normal bowel sounds, non tender, soft Extremities: + pedal edema, + swelling Neurologic/Psychiatric: alert, oriented x 3 Hospital Course The patient is a 61-year-old male resident of [facility] , the pt has acute on chronic systolic heart failure, The patient was in the mental health unit at [facility] and has known severe mental health issues. Acute on chronic systolic CHF, Acute hypoxemic respiratory failure, pt was on O2 on presentation, will have discharged on a higher dose of lasix with instructions for renal function and body weight surveillance at [facility] for further adjustments CT Chest showed . Moderate bilateral pleural effusions with associated lower lobe airspace opacities and volume loss which favor compressive atelectasis, Moderate cardiomegaly. ECHO: EF severely reduced, 15-20%, Lasix twice a day, 80 am 40 pm -check daily weights aspirin 81 mg by mouth daily, carvedilol 6.25 mg by mouth twice a day, lisinopril 10mg daily, potassium extended release 20 mEq tid and spironolactone 50 mg daily -pt clearly does not want any aggressive measures like cardiac cath to see if has CAD, and declines ICD for primary prevention, wants to be a DNR/DNI -will need Cardiology f/u as an outpatient has seen Dr Hernandez, reportedly being released from [facility] on 07/31/16 Diabetes mellitus--typically on metformin and glimeparide, now on ssi will keep on ssi Schizophrenia--stable Abilify 5 mg by mouth daily and benztropine 0.5 mg by mouth at bedtime. Abnormal liver enzymes--may be secondary to hepatic congestion as resolved with unloading of volume, but also has h/o HCV Shingles, with scarring and crusted over lesions, Proph-Lovenox -Dispo-to [facility] Total Time Spent: Greater than 30 minutes This includes examination of the patient, discharge planning, medication reconciliation, and communication with other providers. Discharge Instructions Please refer to the electronic Patient Visit Report (Discharge Instructions) for additional information.
== END 2016-07-20 16:05 | disposition home or self-care (01) | DRG 291 ==
LOC: ENRESERVDT → ENRESERVTM → C.EDA 13:45 → C.MSICU 17:13 → UNDOADMIN 18:34 → C.MS2W 07-16 11:34
PROVIDERS: ADMIT Hospitalist; ATTEND Internal Medicine
DX: I11.0 Hypertensive heart disease with heart failure (principal); J96.01 Acute respiratory failure with hypoxia; I50.23 Acute on chronic systolic (congestive) heart failure; E86.1 Hypovolemia; Z87.891 Personal history of nicotine dependence; E11.9 Type 2 diabetes mellitus without complications; F20.9 Schizophrenia, unspecified; E78.5 Hyperlipidemia, unspecified; B19.20 Unspecified viral hepatitis C without hepatic coma; Z79.82 Long term (current) use of aspirin; Z91.19 Patient's noncompliance with other medical treatment and regimen; Z66 Do not resuscitate; B02.9 Zoster without complications